=== PATIENT | female | born 1990 | race Caucasian/White ===

== ENCOUNTER 2017-09-13 14:09 | Emergency (ER) | payer MEDICAID ==
[~2017-09-13] VITALS: Ht 167.6 cm; Wt 78.0 kg
[2017-09-13 14:13] VITALS: BP 122/68; PULSE 80; RESP 12; TEMP 97.9; O2SAT 99
[2017-09-13 14:24] VITALS: BP 120/65; PULSE 73; RESP 15; O2SAT 98
[2017-09-13] MEDS ORDERED: SODIUM CHLORIDE 0.9% FLUSH 10 ML FLUSH IVF PRN (15:15)
--- NOTE | 2017-09-13 15:16 | PD ---
HPI Chief Complaint: Numbness/Tingling Time Seen by Provider: 15:12 Travel History International Travel<30 days: No Contact w/Intl Traveler<30days: No Traveled to known affect area: No History of Present Illness HPI Patient is a 27-year-old female presenting to emergency Department for evaluation of facial twitching and headache. Patient states that 6 weeks ago she started having twitching in her right eye. She reports a frontal headache intermittently since that time. The headache goes from her forehead to her neck. Patient also reports muscle tightness in her shoulders, upper back and neck. She reports photophobia and mild nausea occasionally with headaches. She states the headaches have become more frequent and today she had numbness and tingling to the entire right side of her face. She denies any visual changes, gait abnormality, weakness in her extremities. She denies any head injury. Patient further denies any new stressors. PFSH Past Medical History Medical History: Denies Significant Hx Tetanus Vaccination: > 5 Years Influenza Vaccination: No ?: Not LMP: 09/09/17 Past Surgical History Appendectomy: Yes Section: Yes (X2) Tonsillectomy: Yes Social History Alcohol Use: No Tobacco Use: Yes (/2 PPD) Substance Use: No Allergies-Medications (Allergen,Severity, Reaction): Coded Allergies: No Known Allergies (Unverified Adverse Reaction, Unknown, 09/13/17) Reported Meds & Prescriptions Reported Meds & Active Scripts Active No Active Prescriptions or Reported Medications Review of Systems Except as stated in HPI: all other systems reviewed are Neg General / Constitutional: No: Fever, Chills HENT: Positive: Headaches, Neck Stiffness, No: Vertigo, Lightheadedness Cardiovascular: No: Chest Pain or Discomfort Respiratory: No: Shortness of Breath Gastrointestinal: Positive: Nausea, No: Abdominal Pain Genitourinary: No: Dysuria Musculoskeletal: Positive: Myalgias, Cramping Neurologic: Positive: Headache, Paresthesia Psychiatric: No: Anxiety, Substance Abuse Physical Exam Narrative GENERAL: Well-developed, well-nourished, alert female. Resting comfortably in no acute distress. SKIN: Warm and dry. HEAD: Atraumatic. Normocephalic. EYES: Pupils equal and round and reactive. No scleral icterus. No injection or drainage. Extraocular movements are intact ENT: No nasal bleeding or discharge. Mucous membranes pink and moist. NECK: Trachea midline. No JVD. Mild tenderness to palpation paraspinal musculature cervical region, full range of motion with flexion, extension and rotation. No meningeal signs noted. CARDIOVASCULAR: Regular rate and rhythm. RESPIRATORY: No accessory muscle use. Clear to auscultation. Breath sounds equal bilaterally. GASTROINTESTINAL: Abdomen soft, non-tender, nondistended. Hepatic and splenic margins not palpable. MUSCULOSKELETAL: Extremities without clubbing, cyanosis, or edema. No obvious deformities. NEUROLOGICAL: Awake and alert. No obvious cranial nerve deficits. Motor grossly within normal limits. Five out of 5 muscle strength in the arms and legs. Normal speech. PSYCHIATRIC: Appropriate mood and affect; insight and judgment normal. Data Data Last Documented VS Vital Signs Date Time Temp Pulse Resp B/P (MAP) Pulse Ox O2 Delivery O2 Flow Rate FiO2 09/13/17 15:25 18 98 Room Air 09/13/17 14:24 73 09/13/17 14:13 97.9 Orders Orders Complete Blood Count With Diff (09/13/17 15:08) Comprehensive Metabolic Panel (09/13/17 15:08) C-Reactive Protein (Crp) (09/13/17 15:08) Ct Brain W/O Iv Contrast(Rout) (09/13/17 15:08) Ecg Monitoring (09/13/17 15:08) Iv Access Insert/Monitor (09/13/17 15:08) Oximetry (09/13/17 15:08) Sodium Chloride 0.9% Flush (Ns Flush) (09/13/17 15:15) Ed Urine Pregnancytest Poc (09/13/17 15:08) Urinalysis - C+S If Indicated (09/13/17 15:08) Vitamin B12 (09/13/17 15:08) Thyroid Stimulating Hormone (09/13/17 15:28) Free T3 (09/13/17 15:28) Labs Laboratory Tests Test 09/13/17 15:30 White Blood Count 8.2 TH/MM3 Red Blood Count 4.24 MIL/MM3 Hemoglobin 13.9 GM/DL Hematocrit 40.1 % Mean Corpuscular Volume 94.6 FL Mean Corpuscular Hemoglobin 32.8 PG Mean Corpuscular Hemoglobin Concent 34.7 % Red Cell Distribution Width 13.0 % Platelet Count 265 TH/MM3 Mean Platelet Volume 8.4 FL Neutrophils (%) (Auto) 63.8 % Lymphocytes (%) (Auto) 28.2 % Monocytes (%) (Auto) 5.2 % Eosinophils (%) (Auto) 1.6 % Basophils (%) (Auto) 1.2 % Neutrophils # (Auto) 5.2 TH/MM3 Lymphocytes # (Auto) 2.3 TH/MM3 Monocytes # (Auto) 0.4 TH/MM3 Eosinophils # (Auto) 0.1 TH/MM3 Basophils # (Auto) 0.1 TH/MM3 CBC Comment DIFF FINAL Differential Comment Urine Color LIGHT-YELLOW Urine Turbidity CLEAR Urine pH 6.0 Urine Specific [place] 1.007 Urine Protein NEG mg/dL Urine Glucose (UA) NEG mg/dL Urine Ketones NEG mg/dL Urine Occult Blood NEG Urine Nitrite NEG Urine Bilirubin NEG Urine Urobilinogen LESS THAN 2.0 MG/DL Urine Leukocyte Esterase NEG Urine RBC LESS THAN 1 /hpf Urine WBC 1 /hpf Urine Squamous Epithelial Cells 2 /hpf Microscopic Urinalysis Comment CULT NOT INDICATED Blood Urea Nitrogen 14 MG/DL Creatinine 0.64 MG/DL Random Glucose 81 MG/DL Total Protein 7.5 GM/DL Albumin 4.2 GM/DL Calcium Level 9.0 MG/DL Alkaline Phosphatase 66 U/L Aspartate Amino Transf (AST/SGOT) 20 U/L Alanine Aminotransferase (ALT/SGPT) 22 U/L Total Bilirubin 0.3 MG/DL Sodium Level 138 MEQ/L Potassium Level 3.7 MEQ/L Chloride Level 106 MEQ/L Carbon Dioxide Level 25.2 MEQ/L Anion Gap 7 MEQ/L Estimat Glomerular Filtration Rate 112 ML/MIN C-Reactive Protein LESS THAN 0.29 MG/DL Vitamin B12 Level 946 PG/ML Free Triiodothyronine (T3) pg/dL 3.12 PG/ML Thyroid Stimulating Hormone 3rd Gen 0.663 uIU/ML MDM Medical Decision Making Medical Screen Exam Complete: Yes Emergency Medical Condition: Yes Interpretation(s) Laboratory Tests Test 09/13/17 15:30 White Blood Count 8.2 TH/MM3 Red Blood Count 4.24 MIL/MM3 Hemoglobin 13.9 GM/DL Hematocrit 40.1 % Mean Corpuscular Volume 94.6 FL Mean Corpuscular Hemoglobin 32.8 PG Mean Corpuscular Hemoglobin Concent 34.7 % Red Cell Distribution Width 13.0 % Platelet Count 265 TH/MM3 Mean Platelet Volume 8.4 FL Neutrophils (%) (Auto) 63.8 % Lymphocytes (%) (Auto) 28.2 % Monocytes (%) (Auto) 5.2 % Eosinophils (%) (Auto) 1.6 % Basophils (%) (Auto) 1.2 % Neutrophils # (Auto) 5.2 TH/MM3 Lymphocytes # (Auto) 2.3 TH/MM3 Monocytes # (Auto) 0.4 TH/MM3 Eosinophils # (Auto) 0.1 TH/MM3 Basophils # (Auto) 0.1 TH/MM3 CBC Comment DIFF FINAL Differential Comment Urine Color LIGHT-YELLOW Urine Turbidity CLEAR Urine pH 6.0 Urine Specific [place] 1.007 Urine Protein NEG mg/dL Urine Glucose (UA) NEG mg/dL Urine Ketones NEG mg/dL Urine Occult Blood NEG Urine Nitrite NEG Urine Bilirubin NEG Urine Urobilinogen LESS THAN 2.0 MG/DL Urine Leukocyte Esterase NEG Urine RBC LESS THAN 1 /hpf Urine WBC 1 /hpf Urine Squamous Epithelial Cells 2 /hpf Microscopic Urinalysis Comment CULT NOT INDICATED Blood Urea Nitrogen 14 MG/DL Creatinine 0.64 MG/DL Random Glucose 81 MG/DL Total Protein 7.5 GM/DL Albumin 4.2 GM/DL Calcium Level 9.0 MG/DL Alkaline Phosphatase 66 U/L Aspartate Amino Transf (AST/SGOT) 20 U/L Alanine Aminotransferase (ALT/SGPT) 22 U/L Total Bilirubin 0.3 MG/DL Sodium Level 138 MEQ/L Potassium Level 3.7 MEQ/L Chloride Level 106 MEQ/L Carbon Dioxide Level 25.2 MEQ/L Anion Gap 7 MEQ/L Estimat Glomerular Filtration Rate 112 ML/MIN C-Reactive Protein LESS THAN 0.29 MG/DL Vitamin B12 Level 946 PG/ML Free Triiodothyronine (T3) pg/dL 3.12 PG/ML Thyroid Stimulating Hormone 3rd Gen 0.663 uIU/ML Vital Signs Date Time Temp Pulse Resp B/P (MAP) Pulse Ox O2 Delivery O2 Flow Rate FiO2 09/13/17 14:24 73 15 120/65 (83) 98 Room Air 09/13/17 14:13 97.9 80 12 122/68 (86) 99 Differential Diagnosis Anemia versus metabolic abnormality versus tension headache versus migraine versus other Narrative Course Patient is a 27 year old female that presented to emergency apartment for evaluation of right facial twitching and tingling. She also reported intermittent headache for the last month and a half. Labs and imaging ordered and pending. No focal deficits noted on exam. No obvious twitching, there is no muscle weakness. CT scan of the brain shows no acute abnormalities, there is right maxillary sinus disease. Labs reviewed, never no acute findings identified. Patient will be treated for sinusitis, she is encouraged follow-up with her primary doctor. She is encouraged to avoid caffeine intake or stimulant intake. She is advised to return to emergency department immediately for any new or worsening symptoms. Patient verbalized understanding of instructions. Patient is stable for discharge. Diagnosis Primary Impression: Sinusitis Qualified Codes: J32.0 - Chronic maxillary sinusitis Additional Impressions: Headache Qualified Codes: R51 - Headache Facial twitching Referrals: Primary Care Physician 3 days Patient Instructions: Acute Headache (ED), General Instructions, Muscle Spasm ( ED), Sinusitis (GEN), Tension Headache (ED) Additional Instructions: Follow-up with a primary doctor Take medications as directed Avoid caffeine or stimulant intake Return to emergency department for any new or worsening symptoms Med/Other Pt SpecificInfo: Prescription(s) given Scripts Fluticasone Nasal [place] (Fluticasone Nasal [place]) 50 Mcg/Act Naspr 100 MCG EACH NARE DAILY for Allergy Management, #1 BOTTLE 0 Refills 50 mcg/spray Prov: Tracey Alan 09/13/17 Amoxicillin (Amoxicillin) 875 Mg Tab 875 MG PO BID for Infection, #20 TAB 0 Refills Prov: Tracey Alan 09/13/17 Disposition: 01 DISCHARGE HOME Condition: Stable Tracey Alan Sep 13, 2017 15:15
[2017-09-13 15:25] VITALS: RESP 18; O2SAT 98
[2017-09-13 15:52] LABS: AUTOMATED NEUTROPHIL # 5.2 TH/MM3 (1.8-7.7); BASOPHIL # 0.1 TH/MM3 (0-0.2); BASOPHIL % 1.2 % (0.0-2.0); EOSINOPHIL # 0.1 TH/MM3 (0-0.4); EOSINOPHIL % 1.6 % (0.0-4.0); HEMATOCRIT 40.1 % (35.0-46.0); HEMO FLAGS DIFF FINAL; LYMPH % 28.2 % (9.0-44.0); LYMPHOCYTE # 2.3 TH/MM3 (1.0-4.8); MEAN CELL VOLUME 94.6 FL (80.0-100.0); MEAN CORPUSCULAR HEMOGLOBIN 32.8 PG (27.0-34.0); MEAN CORPUSCULAR HGB CONC 34.7 % (32.0-36.0); MONO % 5.2 % (0.0-8.0); NEUT % 63.8 % (16.0-70.0); PLATELET COUNT 265 TH/MM3 (150-450); RED BLOOD COUNT 4.24 MIL/MM3 (4.00-5.30); WHITE BLOOD COUNT 8.2 TH/MM3 (4.0-11.0)
[2017-09-13 16:19] LABS: ANION GAP 7 MEQ/L (5-15); AST (GOT) 20 U/L (15-37); BICARBONATE 25.2 MEQ/L (21.0-32.0); BLOOD UREA NITROGEN 14 MG/DL (7-18); BLOOD, URINE NEG (NEG); CHLORIDE 106 MEQ/L (98-107); GLOMERULAR FILTRATION RATE 112 ML/MIN (>89); GLUCOSE,URINE NEG (NEG); KETONE, URINE NEG (NEG); NITRITE,URINE NEG (NEG); POTASSIUM 3.7 MEQ/L (3.5-5.1); SODIUM (NA) 138 MEQ/L (136-145); SQUAMOUS EPITHELIAL CELL URINE 2 /hpf (0-5); URINE COLOR LIGHT-YELLOW (YELLW/STRAW)
[2017-09-13 16:21] LABS: ALT (GPT) 22 U/L (10-53)
[2017-09-13 16:22] LABS: COMMENT (UR) CULT NOT INDICATED; CULTURE IF INDICATED CULT NOT INDICATED
[2017-09-13 16:30] VITALS: BP 124/78; PULSE 76; RESP 18; O2SAT 98
[2017-09-13 16:46] LABS: ALKALINE PHOSPHATASE 66 U/L (45-117); TOTAL BILIRUBIN ADULT 0.3 MG/DL (0.2-1.0)
[2017-09-13 17:28] LABS: FREE T3 3.12 PG/ML (2.18-3.98)
--- NOTE | 2017-09-13 17:37 | RADRPT ---
EXAM DATE/TIME: 09/13/2017 17:18 [facility] COMPARISON: No previous studies available for comparison. INDICATIONS : Right sided facial numbness today. RADIATION DOSE: 32.68 CTDIvol (mGy) MEDICAL HISTORY : None SURGICAL HISTORY : Appendectomy. ENCOUNTER: Initial ACUITY: 1 day PAIN SCALE: 5/10 LOCATION: Bilateral head TECHNIQUE: Multiple contiguous axial images were obtained of the head. Using automated exposure control and adj ustment of the mA and/or kV according to patient size, radiation dose was kept as low as reasonably a chievable to obtain optimal diagnostic quality images. DICOM format image data is available electro nically for review and comparison. FINDINGS: CEREBRUM: The ventricles are normal for age. No evidence of midline shift, mass lesion, hemorrhage or acute in farction. No extra-axial fluid collections are seen. POSTERIOR FOSSA: The cerebellum and brainstem are intact. The 4th ventricle is midline. The cerebellopontine angle i s unremarkable. EXTRACRANIAL: The visualized portion of the orbits is intact. Mucoperiosteal thickening involving the right maxilla ry sinus. SKULL: The calvaria is intact. No evidence of skull fracture. CONCLUSION: 1. No acute intracranial abnormality. 2. Right maxillary sinus mucosal disease. Bernard Meza MD on September 13, 2017 at 17:34 Board Certified Radiologist. This report was verified electronically.
[2017-09-13] MEDS ORDERED: FLUT50SP EACH NARE (17:44)
[2017-09-13] MEDS ORDERED: AMOX875T PO (17:44)
== END 2017-09-13 18:11 | disposition home or self-care (01) ==
LOC: NEPE 14:09
DX: J32.0 Chronic maxillary sinusitis (principal); R51 Headache; R25.3 Fasciculation; Z72.0 Tobacco use
CPT/HCPCS: 70450; 80053; 81001; 82607; 84443; 84481; 84703; 85025; 86140; 99285